=== PATIENT | female | born 1995 | race Caucasian/White ===

== ENCOUNTER 2017-08-07 11:52 | Outpatient (CLI) | payer OTHER ==
[2017-08-07] MEDS ORDERED: Iopamidol 370 76% 100 ML VIAL ONE (15:46)
--- NOTE | 2017-08-07 18:51 | CT ---
CT ABDOMEN AND PELVIS WITH ORAL AND IV CONTRAST: Date: 08/07/17 HISTORY: Right upper quadrant pain with nausea. FINDINGS: The lung bases are clear. The liver, spleen, pancreas, adrenal glands, and kidneys are normal. No ga llstones are seen. No free air is identified. No lymphadenopathy is noted. The small bowel loops are not abnormally dilated. A normal appearing appendix is present. Uterus and ovaries are noted. There is a 4.2 cm cyst with peripheral enhancement in the right ovary. There is a moderate amount of free fluid in the pelvis extending into the right lower quadrant. IMPRESSION: 1. No evidence of appendicitis. 2. 4.2 cm right ovarian cyst and free fluid in the pelvis. Findings discussed over the phone with Dr. Ling Banda at 1443 hours. CODE CR. POS: [id number]
== END 2017-08-07 11:53 | disposition home or self-care (01) ==
LOC: CT 11:52
PROVIDERS: ATTEND Family Medicine
DX: R10.31 Right lower quadrant pain (principal); N83.201 Unspecified ovarian cyst, right side
CPT/HCPCS: 74177